=== PATIENT | female | born 1975 | race Caucasian/White ===

== ENCOUNTER 2016-11-01 13:10 | Observation (INO) | payer OTHER ==
[~2016-11-01] VITALS: Ht 162.6 cm; Wt 90.2 kg
[~2016-11-01 13:10] MED LIST: FOLITAB6 OR; HIGHTAB3 PO; OXYC-360 PO; PRENTAB72 PO
[2016-11-01 13:12] VITALS: BP 146/67; PULSE 131; RESP 16; TEMP 98.4; O2SAT 99
--- NOTE | 2016-11-01 14:03 | PD ---
HPI Chief Complaint: Cardiac Complaint Time Seen by Provider: 13:49 Travel History International Travel<30 days: No Contact w/Intl Traveler<30days: No Traveled to known affect area: No History of Present Illness HPI This 41-year-old female says that she felt her heart racing and she felt lightheaded. This started around 12:30. At that time she was working on a computer. She walked next door to her neighbor's house and her neighbor who is a respiratory therapist says her heart rate was 140. This gradually slowed down since then and she is feeling a bit better. She did start a diet with new changes since and had a shake this morning she had some dull pain prior to the onset of the racing heart. She does have racing of her heart at times at night. It sometimes keeps her awake. She had not had it during the day. She has no hypertension and is on no medications area at the age of 16 she was treated for Hodgkin's disease with radiation and chemotherapy there are pink. She says that a goiter was found last September and she had a biopsy. It was by benign. She is supposed to be euthyroid. PFSH Past Medical History Chemotherapy: Yes Diminished Hearing: No Social History Alcohol Use: No Tobacco Use: No Substance Use: No Allergies-Medications (Allergen,Severity, Reaction): Coded Allergies: No Known Allergies (Verified , 11/01/16) Reported Meds & Prescriptions Reported Meds & Active Scripts Active Reported Percocet (Oxycodone/Acetaminophen) 5 Mg/325 Mg Tab 1-2 Tab PO Q4HPRN FOR PAIN Ferrous Sulfate Tab 1 PO Folic Acid (Folic Ppzo-Icxbrvplsb-Bfcrhgei) Tab 2 Mg OR DAILY ( Vit W/ Ferrous Fumara) Tab 1 PO Review of Systems General / Constitutional: No: Fever, Chills Eyes: No: Diploplia, Blurred Vision HENT: No: Headaches, Vertigo Cardiovascular: Positive: Chest Pain or Discomfort, Palpitations, Tachycardia Respiratory: No: Cough, Shortness of Breath Gastrointestinal: No: Nausea, Vomiting Genitourinary: No: Urgency, Frequency Musculoskeletal: No: Myalgias, Arthralgias Skin: No Rash, No Itching Neurologic: Positive: Weakness Psychiatric: No: Anxiety, Substance Abuse Endocrine: No: Heat Intolerance Physical Exam Narrative GENERAL: Well-developed SKIN: Focused skin assessment warm/dry. HEAD: Atraumatic. Normocephalic. EYES: Pupils equal and round. No scleral icterus. No injection or drainage. ENT: No nasal bleeding or discharge. Mucous membranes pink and moist. NECK: Trachea midline. No JVD. Thyroid is diffusely enlarged nontender CARDIOVASCULAR: Regular rate and rhythm. No murmur appreciated. RESPIRATORY: No accessory muscle use. Clear to auscultation. Breath sounds equal bilaterally. GASTROINTESTINAL: Abdomen soft, non-tender, nondistended. Hepatic and splenic margins not palpable. MUSCULOSKELETAL: No obvious deformities. No clubbing. No cyanosis. No edema. NEUROLOGICAL: Awake and alert. No obvious cranial nerve deficits. Motor grossly within normal limits. Normal speech. PSYCHIATRIC: Appropriate mood and affect; insight and judgment normal. Data Data Last Documented VS Vital Signs Date Time Temp Pulse Resp B/P (MAP) Pulse Ox O2 Delivery O2 Flow Rate FiO2 11/01/16 13:12 98.4 131 16 146/67 (93) 99 Orders Orders Electrocardiogram (11/01/16 14:00) Complete Blood Count With Diff (11/01/16 14:00) Comprehensive Metabolic Panel (11/01/16 14:00) Troponin I (11/01/16 14:00) Magnesium (Mg) (11/01/16 14:00) Thyroid Stimulating Hormone (11/01/16 14:00) Electrocardiogram (11/01/16 15:10) Aspirin (Aspirin) (11/01/16 15:15) Admit Order (Ed Use Only) (11/01/16 15:40) Labs Laboratory Tests Test 11/01/16 14:35 White Blood Count 9.5 TH/MM3 Red Blood Count 4.62 MIL/MM3 Hemoglobin 13.4 GM/DL Hematocrit 39.5 % Mean Corpuscular Volume 85.4 FL Mean Corpuscular Hemoglobin 29.0 PG Mean Corpuscular Hemoglobin Concent 34.0 % Red Cell Distribution Width 12.4 % Platelet Count 375 TH/MM3 Mean Platelet Volume 7.8 FL Neutrophils (%) (Auto) 78.1 % Lymphocytes (%) (Auto) 13.5 % Monocytes (%) (Auto) 7.2 % Eosinophils (%) (Auto) 0.4 % Basophils (%) (Auto) 0.8 % Neutrophils # (Auto) 7.4 TH/MM3 Lymphocytes # (Auto) 1.3 TH/MM3 Monocytes # (Auto) 0.7 TH/MM3 Eosinophils # (Auto) 0.0 TH/MM3 Basophils # (Auto) 0.1 TH/MM3 CBC Comment DIFF FINAL Differential Comment Blood Urea Nitrogen 14 MG/DL Creatinine 0.73 MG/DL Random Glucose 101 MG/DL Total Protein 7.8 GM/DL Albumin 3.7 GM/DL Calcium Level 9.2 MG/DL Magnesium Level 2.1 MG/DL Alkaline Phosphatase 76 U/L Aspartate Amino Transf (AST/SGOT) 11 U/L Alanine Aminotransferase (ALT/SGPT) 15 U/L Total Bilirubin 0.5 MG/DL Sodium Level 136 MEQ/L Potassium Level 3.6 MEQ/L Chloride Level 104 MEQ/L Carbon Dioxide Level 23.6 MEQ/L Anion Gap 8 MEQ/L Estimat Glomerular Filtration Rate 87 ML/MIN Troponin I LESS THAN 0.02 NG/ML Thyroid Stimulating Hormone 3rd Gen 2.240 uIU/ML MDM Medical Decision Making Medical Screen Exam Complete: Yes Emergency Medical Condition: Yes Medical Record Reviewed: Yes Differential Diagnosis Differential includes adverse effect from did shake, hyperthyroidism, coronary artery disease Narrative Course Initial EKG shows sinus tachycardia at a rate of 122. There are ST depressions in leads 23 and F. initial troponin is normal. Repeat EKG was done after period of observation. On the repeat EKG the ventricular rate is 87. The ST depressions The patient is continuing to have intermittent substernal tightness. She'll be admitted to the chest pain center Diagnosis Primary Impression: Chest pain Qualified Codes: R07.9 - Chest pain, unspecified Admitting Information Admitting Physician Requests: Observation Jeffery Francisco MD Nov 01, 2016 14:03
[2016-11-01 14:39] LABS: AUTOMATED NEUTROPHIL # 7.4 TH/MM3 (1.8-7.7); BASOPHIL # 0.1 TH/MM3 (0-0.2); BASOPHIL % 0.8 % (0.0-2.0); EOSINOPHIL % 0.4 % (0.0-4.0); HEMATOCRIT 39.5 % (35.0-46.0); HEMO FLAGS DIFF FINAL; LYMPH % 13.5 % (9.0-44.0); LYMPHOCYTE # 1.3 TH/MM3 (1.0-4.8); MEAN CELL VOLUME 85.4 FL (80.0-100.0); MONO % 7.2 % (0.0-8.0); NEUT % 78.1 % (16.0-70.0); PLATELET COUNT 375 TH/MM3 (150-450); RED BLOOD COUNT 4.62 MIL/MM3 (4.00-5.30); RED CELL DISTRIBUTION WIDTH 12.4 % (11.6-17.2); WHITE BLOOD COUNT 9.5 TH/MM3 (4.0-11.0)
[2016-11-01 14:50] LABS: CHLORIDE 104 MEQ/L (98-107); POTASSIUM 3.6 MEQ/L (3.5-5.1); SODIUM (NA) 136 MEQ/L (136-145)
[2016-11-01 14:54] LABS: ANION GAP 8 MEQ/L (5-15); BICARBONATE 23.6 MEQ/L (21.0-32.0); BLOOD UREA NITROGEN 14 MG/DL (7-18); MAGNESIUM 2.1 MG/DL (1.5-2.5)
[2016-11-01 14:57] LABS: ALT (GPT) 15 U/L (10-53); AST (GOT) 11 U/L (15-37); GLOMERULAR FILTRATION RATE 87 ML/MIN (>89)
[2016-11-01 14:58] LABS: TOTAL BILIRUBIN ADULT 0.5 MG/DL (0.2-1.0)
[2016-11-01 15:00] LABS: ALKALINE PHOSPHATASE 76 U/L (45-117)
[2016-11-01] MEDS ORDERED: ASPIRIN 325 MG TAB PO ONE (15:15)
[2016-11-01 15:50] VITALS: BP 111/67; PULSE 90; RESP 16; O2SAT 98
[2016-11-01 17:13] VITALS: BP 111/66; PULSE 76; RESP 18; O2SAT 98
[2016-11-01] MEDS ORDERED: SODIUM CHLORIDE 0.9% FLUSH 10 ML FLUSH IV FLUSH PRN (17:30)
[2016-11-01] MEDS ORDERED: NALOXONE HCL 0.4 MG/ML AMP IV PUSH PRN (17:30)
--- NOTE | 2016-11-01 18:01 | HHI.HP ---
[facility] Primary Care Physician Deb Barajas MD Admission Diagnosis CHEST PAIN Diagnoses: Chief Complaint: Palpitations Travel History International Travel<30 Days: No Contact w/Intl Traveler <30 Da: No Traveled to Known Affected Are: No History of Present Illness This patient is a pleasant 41-year-old female who has had 2 weeks of increased palpitations which have been intermittent and non-provoked. Usually they occur at night. She noted this morning she took a weight loss supplement containing caffeine and the heart rate went very fast and she felt some palpitations. She got a neighbor who is a respiratory therapist and apparently her heart rate was in the 140s. The patient says that she came to the emergency room for further evaluation and here her heart rate has been in the 130s is a sinus tachycardia with some abnormal EKG changes. On my review the EKG is sinus tach with some transient ST depressions which subsided on subsequent EKGs. Patient notes no fevers or chills. No recent trauma. No recent travel and she has felt well since she's been to the emergency room. She notes a goiter that has been diagnosed by her primary doctor and for which she has been under surveillance for with normal thyroid indices. Patient was given aspirin in the emergency room and appears to have improvement of her symptoms. She denies and test is pending. She has been Review of Systems Constitutional: COMPLAINS OF: Weight gain, DENIES: Diaphoretic episodes, Fatigue, Fever, Weight loss, Chills, Dizziness, Change in appetite, Night Sweats Endocrine: DENIES: Abnorml menstrual pattern, Heat/cold intolerance, Polydipsia , Polyuria, Polyphagia Eyes: DENIES: Blurred vision, Diplopia, Eye inflammation, Eye pain, Vision loss , Photosensitivity, Double Vision Ears, nose, mouth, throat: DENIES: Tinnitus, Hearing loss, Vertigo, Nasal discharge, Oral lesions, Throat pain, Hoarseness, Ear Pain, Running Nose, Epistaxis, Sinus Pain, Toothache, Odynophagia Respiratory: DENIES: Apneas, Cough, Snoring, Wheezing, Hemoptysis, Sputum production, Shortness of breath Cardiovascular: COMPLAINS OF: Palpitations, DENIES: Chest pain, Syncope, Dyspnea on Exertion, PND, Lower Extremity Edema, Orthopnea, Claudication Gastrointestinal: DENIES: Abdominal pain, Black stools, Bloody stools, Constipation, Diarrhea, Nausea, Vomiting, Difficulty Swallowing, Anorexia Genitourinary: DENIES: Abnormal vaginal bleeding, Dysmenorrhea, Dyspareunia, Sexual dysfunction, Urinary frequency, Urinary incontinence, Urgency, Hematuria , Dysuria, Nocturia, Vaginal discharge Integumentary: DENIES: Abnormal pigmentation, Pruritus, Rash, Nail changes, Breast masses, Breast skin changes, Nipple discharge Hematologic/lymphatic: DENIES: Bruising, Lymphadenopathy Immunologic/allergic: DENIES: Eczema, Urticaria Neurologic: DENIES: Abnormal gait, Headache, Localized weakness, Paresthesias, Seizures, Speech Problems, Tremor, Poor Balance Psychiatric: DENIES: Anxiety, Confusion, Mood changes, Depression, Hallucinations, Agitation, Suicidal Ideation, Homicidal Ideation, Delusions Past Family Social History Past Medical History Thyroid goiter History of a lymphoma requiring radiation as a teenager Past Surgical History Reproductive laparoscopic surgery for endometriosis Reported Medications Reviewed in the medical record, also recently has been taking weight loss supplements containing caffeine Allergies: Coded Allergies: No Known Allergies (Verified , 11/01/16) Active Ordered Medications Reviewed in the medical record Family History No family history of cardiac disease, family history of thyroid disease Social History No tobacco or alcohol dependency, Physical Exam Vital Signs Vital Signs Date Time Temp Pulse Resp B/P (MAP) Pulse Ox O2 Delivery O2 Flow Rate FiO2 11/01/16 17:13 11/01/16 17:13 76 18 111/66 (81) 98 Room Air 11/01/16 15:50 90 16 111/67 (82) 98 Room Air 11/01/16 13:12 98.4 131 16 146/67 (93) 99 Physical Exam GENERAL: This is a well-nourished, well-developed patient, in no apparent distress. SKIN: No rashes, ecchymoses or lesions. Cool and dry. HEAD: Atraumatic. Normocephalic. No temporal or scalp tenderness. EYES: Pupils equal round and reactive. Extraocular motions intact. No scleral icterus. No injection or drainage. ENT: Nose without bleeding, purulent drainage or septal hematoma. Throat without erythema, tonsillar hypertrophy or exudate. Uvula midline. Airway patent. NECK: Goiter, nontender. Trachea midline. No JVD or lymphadenopathy. Supple, nontender, no meningeal signs. CARDIOVASCULAR: Sinus tachycardia and rhythm without murmurs, gallops, or rubs. RESPIRATORY: Clear to auscultation. Breath sounds equal bilaterally. No wheezes , rales, or rhonchi. GASTROINTESTINAL: Abdomen soft, non-tender, nondistended. No hepato-splenomegaly , or palpable masses. No guarding. MUSCULOSKELETAL: Extremities without clubbing, cyanosis, or edema. No joint tenderness, effusion, or edema noted. No calf tenderness. Negative Homans sign bilaterally. NEUROLOGICAL: Awake and alert. Cranial nerves II through XII intact. Motor and sensory grossly within normal limits. Five out of 5 muscle strength in all muscle groups. Normal speech. Laboratory Laboratory Tests Test 11/01/16 14:35 White Blood Count 9.5 Red Blood Count 4.62 Hemoglobin 13.4 Hematocrit 39.5 Mean Corpuscular Volume 85.4 Mean Corpuscular Hemoglobin 29.0 Mean Corpuscular Hemoglobin Concent 34.0 Red Cell Distribution Width 12.4 Platelet Count 375 Mean Platelet Volume 7.8 Neutrophils (%) (Auto) 78.1 Lymphocytes (%) (Auto) 13.5 Monocytes (%) (Auto) 7.2 Eosinophils (%) (Auto) 0.4 Basophils (%) (Auto) 0.8 Neutrophils # (Auto) 7.4 Lymphocytes # (Auto) 1.3 Monocytes # (Auto) 0.7 Eosinophils # (Auto) 0.0 Basophils # (Auto) 0.1 CBC Comment DIFF FINAL Differential Comment Blood Urea Nitrogen 14 Creatinine 0.73 Random Glucose 101 Total Protein 7.8 Albumin 3.7 Calcium Level 9.2 Magnesium Level 2.1 Alkaline Phosphatase 76 Aspartate Amino Transf (AST/SGOT) 11 Alanine Aminotransferase (ALT/SGPT) 15 Total Bilirubin 0.5 Sodium Level 136 Potassium Level 3.6 Chloride Level 104 Carbon Dioxide Level 23.6 Anion Gap 8 Estimat Glomerular Filtration Rate 87 Troponin I LESS THAN 0.02 Thyroid Stimulating Hormone 3rd Gen 2.240 Result Diagram: 11/01/16 1435 11/01/16 1435 Caprini VTE Risk Assessment Caprini VTE Risk Assessment: No/Low Risk (score <= 1) Caprini Risk Assessment Model Point Value = 1 Point Value = 2 Point Value = 3 Point Value = 5 Age 41-60 Minor surgery BMI > 25 kg/m2 Swollen legs Varicose veins or History of unexplained or recurrent spontaneous Oral contraceptives or hormone replacement Sepsis (< 1 month) Serious lung disease, including pneumonia (< 1 month) Abnormal pulmonary function Acute myocardial infarction Congestive heart failure (< 1 month) History of inflammatory bowel disease Medical patient at bed rest Age 61-74 Arthroscopic surgery Major open surgery (> 45 min) Laparoscopic surgery (> 45 min) Malignancy Confined to bed (> 72 hours) Immobilizing plaster cast Central venous access Age >= 75 History of VTE Family history of VTE Factor V Leiden Prothrombin [id number] Lupus anticoagulant Anticardiolipin antibodies Elevated serum homocysteine Heparin-induced thrombocytopenia Other congenital or acquired thrombophilia Stroke (< 1 month) Elective arthroplasty Hip, pelvis, or leg fracture Acute spinal cord injury (< 1 month) Prophylaxis Regimen Total Risk Factor Score Risk Level Prophylaxis Regimen 0-1 Low Early ambulation 2 Moderate Order ONE of the following: *Sequential Compression Device (SCD) *Heparin 5000 units SQ BID 3-4 Higher Order ONE of the following medications: *Heparin 5000 units SQ TID *Enoxaparin/Lovenox 40 mg SQ daily (WT < 150 kg, CrCl > 30 mL/min) *Enoxaparin/Lovenox 30 mg SQ daily (WT < 150 kg, CrCl > 10-29 mL/min) *Enoxaparin/Lovenox 30 mg SQ BID (WT < 150 kg, CrCl > 30 mL/min) AND/OR *Sequential Compression Device (SCD) 5 or more Highest Order ONE of the following medications: *Heparin 5000 units SQ TID (Preferred with Epidurals) *Enoxaparin/Lovenox 40 mg SQ daily (WT < 150 kg, CrCl > 30 mL/min) *Enoxaparin/Lovenox 30 mg SQ daily (WT < 150 kg, CrCl > 10-29 mL/min) *Enoxaparin/Lovenox 30 mg SQ BID (WT < 150 kg, CrCl > 30 mL/min) AND *Sequential Compression Device (SCD) Assessment and Plan Problem List: (1) Tachycardia ICD Code: R00.0 - Tachycardia, unspecified Plan: Etiology unclear. Patient denies chest pain only palpitations which have seemed to resolve after IV hydration. Patient may have a lot of caffeine in her system due to her recent weight loss management plan (2) Chest pain ICD Code: R07.9 - Chest pain, unspecified Status: Acute Plan: We'll trend serial troponins and follow-up with her EKG in a.m. Likely noncardiac st in am Code Status full code Discussed Condition With patient, mom, ermd Problem Qualifiers (1) Chest pain: Qualified Codes: R07.9 - Chest pain, unspecified Ca Garcia MD Nov 01, 2016 18:01
--- NOTE | 2016-11-01 18:39 | RADRPT ---
EXAM DATE/TIME: 11/01/2016 18:17 [facility] COMPARISON: No previous studies available for comparison. INDICATIONS : Chest pain. MEDICAL HISTORY : Lymphoma. Thyroid goiter. SURGICAL HISTORY : None. ENCOUNTER: Initial ACUITY: 2 days PAIN SCORE: 3/10 LOCATION: chest substernal. FINDINGS: I have no prior studies for comparison. There is volume loss in the left upper lobe with some air br onchograms and elevation left diaphragm. This has the appearance of the chronic process. The right lung is clear. The heart and pulmonary vascularity are normal. The portion of the bony skel eton visualized is unremarkable. CONCLUSION: No prior studies. Volume loss left upper lobe with some air bronchograms and elevat ion of the left mid diaphragm probably chronic. Board Certified Radiologist. This report was verified electronically.
[2016-11-01 19:08] LABS: BETA HCG QUANT LESS THAN 1 MIU/ML (0-5)
[2016-11-01 19:52] LABS: CREATINE KINASE 44 U/L (26-192)
[2016-11-01 20:00] VITALS: BP 103/61; PULSE 80; RESP 18; TEMP 97.9; O2SAT 96
[2016-11-01] MEDS: SODIUM CHLORIDE 0.9% FLUSH 10 ML FLUSH IV FLUSH SCH (20:21)
[2016-11-01 23:00] VITALS: PULSE 75
[2016-11-02] VITALS: BP 115/76; PULSE 75; RESP 16; TEMP 96.7; O2SAT 100
[2016-11-02 04:00] VITALS: BP 107/64; PULSE 80; RESP 16; TEMP 97.5; O2SAT 99
[2016-11-02 06:48] LABS: AUTOMATED NEUTROPHIL # 4.3 TH/MM3 (1.8-7.7); BASOPHIL % 0.5 % (0.0-2.0); EOSINOPHIL # 0.1 TH/MM3 (0-0.4); EOSINOPHIL % 1.4 % (0.0-4.0); HEMATOCRIT 39.5 % (35.0-46.0); HEMO FLAGS DIFF FINAL; LYMPH % 29.1 % (9.0-44.0); LYMPHOCYTE # 2.2 TH/MM3 (1.0-4.8); MEAN CELL VOLUME 85.9 FL (80.0-100.0); MEAN CORPUSCULAR HEMOGLOBIN 29.2 PG (27.0-34.0); PLATELET COUNT 355 TH/MM3 (150-450); RED CELL DISTRIBUTION WIDTH 12.3 % (11.6-17.2); WHITE BLOOD COUNT 7.4 TH/MM3 (4.0-11.0)
[2016-11-02 06:49] LABS: POTASSIUM 3.7 MEQ/L (3.5-5.1)
[2016-11-02 06:53] LABS: BICARBONATE 25.6 MEQ/L (21.0-32.0)
[2016-11-02 08:00] VITALS: BP 112/69; PULSE 75; PULSE 87; RESP 20; TEMP 97.8; O2SAT 99
[2016-11-02] MEDS: SODIUM CHLORIDE 0.9% FLUSH 10 ML FLUSH IV FLUSH SCH (09:00)
[2016-11-02] MEDS ORDERED: REGADENOSON INJ 0.4 MG/5 ML SYR IV ONE (10:37)
[2016-11-02 12:00] VITALS: BP 123/68; PULSE 86; RESP 20; TEMP 97.8; O2SAT 98
--- NOTE | 2016-11-02 12:27 | EKG ---
Date Performed: 11/01/2016 Time Performed: 13:17:56 PTAGE: 41 years EKG: SINUS TACHYCARDIA MODERATE ST DEPRESSION ABNORMAL ECG INTERPRETATION BASED ON A DEFAULT AGE OF [address] changes suggestive of possible ischemia Clinical correlation neeeded NO PREVIOUS TRACING DOCTOR: Scar Bundy Interpretating Date/Time 11/02/2016 12:26:00
--- NOTE | 2016-11-02 12:28 | EKG ---
Date Performed: 11/02/2016 Time Performed: 06:01:19 PTAGE: 41 years EKG: Normal Sinus rhythm BORDERLINE ECG PREVIOUS TRACING : 11/01/2016 15.15 Compared to prior tracing no significant change DOCTOR: Scar Bundy Interpretating Date/Time 11/02/2016 12:27:00
--- NOTE | 2016-11-02 12:28 | EKG ---
Date Performed: 11/01/2016 Time Performed: 15:15:10 PTAGE: 41 years EKG: Sinus rhythm NORMAL ECG PREVIOUS TRACING 11/01/16 ST depression has resolved from the old tracing. Clinical correlatio n recommended. DOCTOR: Scar Bundy Interpretating Date/Time 11/02/2016 12:26:43
--- NOTE | 2016-11-02 12:53 | RADRPT ---
EXAM DATE/TIME: 11/02/2016 10:36 [facility] COMPARISON: No previous studies available for comparison. INDICATIONS : Mid chest pain with heart racing for one day. Abnormal EKG. DOSE: 25.7 mCi Tc99m Myoview at stress. 8.7 mCi Tc99m Myoview at rest. 0.4 mg Lexiscan STRESS SYMPTOMS: Shortness of breath, dizzy and flush. EJECTION FRACTION: 63% MEDICAL HISTORY : Lymphoma. SURGICAL HISTORY : None. ENCOUNTER: Initial ACUITY: 1 day PAIN SCALE: 3/10 LOCATION: Midsternal chest TECHNIQUE: The patient underwent pharmacologic stress with infusion of prescribed dose. Continuous ECG tracing was monitored during stress. Gated SPECT imaging was performed after stress and conventional SPECT i maging was performed at rest. The examination was performed on a SPECT/CT scanner, both attenuation and non-corrected datasets were reviewed. FINDINGS: DISTRIBUTION: The maximum perfused segment at stress is in the posterobasal wall. PERFUSION STUDY: The pattern of perfusion at stress is within normal limits. GATED STUDY: There is intact wall motion and thickening without hypokinetic or dyskinetic segments. CONCLUSION: Normal examination. RISK CATEGORY: Low (<1% Annual Mortality Rate) Dennis Khan MD on November 02, 2016 at 12:49 Board Certified Radiologist. This report was verified electronically.
--- NOTE | 2016-11-02 13:14 | HHI.DCPOC ---
Discharge Care Plan Diagnosis: (1) Chest pain (2) Tachycardia Goals to Promote Your Health * To prevent worsening of your condition and complications * To maintain your health at the optimal level Directions to Meet Your Goals Take your medications as prescribed Follow your dietary instruction Follow activity as directed Keep your appointments as scheduled Take your immunizations and boosters as scheduled If your symptoms worsen call your PCP, if no PCP go to Urgent Care Center or Emergency Room Smoking is Dangerous to Your Health. Avoid second hand smoke Call the 24-hour hour crisis hotline for domestic abuse at Ca Garcia MD Nov 02, 2016 13:13
--- NOTE | 2016-11-02 13:15 | HHI.DS ---
Discharge Summary Admission Date Nov 01, 2016 at 15:41 Discharge Date: Nov 02, 2016 Admitting Diagnosis CHEST PAIN (1) Tachycardia ICD Code: R00.0 - Tachycardia, unspecified (2) Chest pain ICD Code: R07.9 - Chest pain, unspecified Status: Acute Procedures None Brief History - From Admission This patient is a pleasant 41-year-old female who has had 2 weeks of increased palpitations which have been intermittent and non-provoked. Usually they occur at night. She noted this morning she took a weight loss supplement containing caffeine and the heart rate went very fast and she felt some palpitations. She got a neighbor who is a respiratory therapist and apparently her heart rate was in the 140s. The patient says that she came to the emergency room for further evaluation and here her heart rate has been in the 130s is a sinus tachycardia with some abnormal EKG changes. On my review the EKG is sinus tach with some transient ST depressions which subsided on subsequent EKGs. Patient notes no fevers or chills. No recent trauma. No recent travel and she has felt well since she's been to the emergency room. She notes a goiter that has been diagnosed by her primary doctor and for which she has been under surveillance for with normal thyroid indices. Patient was given aspirin in the emergency room and appears to have improvement of her symptoms. She denies and test is pending. She has been CBC/BMP: 11/02/16 0437 11/02/16 0437 Significant Findings Laboratory Tests Test 11/01/16 14:35 11/01/16 18:40 11/02/16 04:37 Neutrophils (%) (Auto) 78.1 % (16.0-70.0) Aspartate Amino Transf (AST/SGOT) 11 U/L (15-37) Estimat Glomerular Filtration Rate 87 ML/MIN (>89) Troponin I LESS THAN 0.02 NG/ML LESS THAN 0.02 NG/ML Monocytes (%) (Auto) 11.0 % (0.0-8.0) Imaging Last Impressions Myocardial Perfusion Scan Nuc Med 11/02/16 0600 Signed Impressions: Service Date/Time: Wednesday, November 02, 2016 10:36 - CONCLUSION: Normal examination. RISK CATEGORY: Low (<1%% Annual Mortality Rate) Dennis Khan MD Chest X-Ray 11/01/16 0000 Signed Impressions: Service Date/Time: Tuesday, November 01, 2016 18:17 - CONCLUSION: No prior studies. Volume loss left upper lobe with some air bronchograms and elevation of the left mid diaphragm probably chronic. Board Certified Radiologist. This report was verified electronically. PE at Discharge GENERAL: This is a well-nourished, well-developed patient, in no apparent distress. CARDIOVASCULAR: Regular rate and rhythm without murmurs, gallops, or rubs. RESPIRATORY: Clear to auscultation. Breath sounds equal bilaterally. No wheezes , rales, or rhonchi. GASTROINTESTINAL: Abdomen soft, non-tender, nondistended. Normal active bowel sounds MUSCULOSKELETAL: Extremities without clubbing, cyanosis, or edema. NEURO: Alert & Oriented x4 to person, place, time, situation. Moves all ext x4 Pt update on day of discharge Patient seen in follow-up for atypical chest discomfort with palpitations, heart rate improved. Stress test negative. Discharge plans discussed with patient and spouse Hospital Course Patient was seen and treated for chest pain which resolved and which was atypical and more like pressure or palpitations. Patient's heart rate was in [place] fast and this improved as well. Patient did have stress test which was unremarkable. Pt Condition on Discharge: Good Discharge Disposition: Discharge Home Discharge Time: <= 30 minutes Discharge Instructions DIET: Follow Instructions for: As Tolerated, No Restrictions Activities you can perform: Regular-No Restrictions Follow up Referrals: PCP Follow-up - 1 Week Continued Medications: Ferrous Sulfate (Ferrous Sulfate) Tab 1 PO Folic Wycg-Bjgugmxlgc-Lwndmmyo (Folic Acid) Tab 2 MG OR DAILY Oxycodone/Acetaminophen (Percocet) 5 Mg/325 Mg Tab 1 - 2 TAB PO Q4HPRN, #60 FOR PAIN Vit W/ Ferrous Fumara () 6.75 Mg Iron-200 Mcg Tab 1 PO Ca Gracia MD Nov 02, 2016 13:15
== END 2016-11-02 14:07 | disposition home or self-care (01) ==
LOC: PHED 13:10 → PHEDA 15:41 → PH3A 17:07
PROVIDERS: ADMIT Hospitalist; ATTEND Hospitalist
DX: R07.89 Other chest pain (principal); R42 Dizziness and giddiness; R00.0 Tachycardia, unspecified; E04.9 Nontoxic goiter, unspecified; R94.31 Abnormal electrocardiogram [ECG] [EKG]
CPT/HCPCS: 71020; 78452; 80048; 80053; 82550; 83735; 84443; 84484; 84702; 85025; 93005; 93017; 99285; A9502; G0378; J2785